=== PATIENT | female | born 1980 | race Caucasian/White ===

== ENCOUNTER 2016-11-14 12:31 | Emergency (ER) | payer MEDICAID ==
[~2016-11-14] VITALS: Ht 162.6 cm; Wt 60.8 kg
[2016-11-14 12:47] VITALS: BP 115/72
--- NOTE | 2016-11-14 13:50 | NUR ---
PT PRESENTS TO ER W/C/O ABDOMINAL PAIN AND TARRY STOOLS INTERMITTENTLY OVER THE PAST 5 MONTHS. DENIES N/V; SKIN IS PINK/WARM/DRY; AAOX4 WITH EVEN AND STEADY GAIT; LUNGS CLEAR BL; HR EVEN AND REGULAR; PT DENIES ANY FEVER, CP, SOB, OR COUGH AT THIS TIME; PATIENT STATES PAIN OF 8/10 AT THIS TIME; VSS; PATIENT POSITIONED FOR COMFORT; HOB ELEVATED; BEDRAILS UP X2; BED DOWN. ER MD MADE AWARE OF PT STATUS.
[2016-11-14] MEDS ORDERED: HYDROcodone/APAP 5/325 MG 1 TAB TAB PO ONE ×2 (14:50)
[2016-11-14] MEDS ORDERED: ONDANSETRON 4 MG ODT PO ONE (14:50)
--- NOTE | 2016-11-14 15:20 | NUR ---
NORCO 5/325 GIVEN PO PER ORDER BY HUI RIVAS
[2016-11-14] MEDS ORDERED: HYDROcodone/APAP 5/325 MG 1 TAB TAB ONE (15:22)
--- NOTE | 2016-11-14 15:35 | NUR ---
NADR ON NORCO AT THIS TIME PAIN 5/
[2016-11-14 16:00] VITALS: BP 127/85
== END 2016-11-14 16:00 | disposition home or self-care (01) ==
LOC: MED 12:31
DX: R10.9 Unspecified abdominal pain (principal); R19.4 Change in bowel habit
CPT/HCPCS: 36415; 80048; 81001; 81025; 85025; 99284; S0119

== ENCOUNTER 2019-07-27 14:05 | Emergency (ER) | payer MEDICAID ==
[~2019-07-27] VITALS: Ht 162.6 cm; Wt 72.6 kg
[2019-07-27 14:23] VITALS: BP 139/92
--- NOTE | 2019-07-27 14:29 | NUR ---
WAIT AT LOBBY.
--- NOTE | 2019-07-27 15:15 | NUR ---
PT AMBUALTED TO ER BED 11
--- NOTE | 2019-07-27 15:32 | NUR ---
38 YO F CO HEADACHE AND COLD. NO PAST MED HX AND NO MEDS TAKEN AT HOME.
[2019-07-27 15:41] VITALS: BP 139/92
--- NOTE | 2019-07-27 15:42 | NUR ---
Patient discharged with v/s stable. Written and verbal after care instructions given and explained. Patient alert, oriented and verbalized understanding of instructions. Ambulatory with steady gait. All questions addressed prior to discharge. ID band removed. Patient advised to follow up with PMD. Rx of IBUPROFEN, FLONASE AND AUGMENTIN given. Patient educated on indication of medication including possible reaction and side effects. Opportunity to ask questions provided and answered.
== END 2019-07-27 15:42 | disposition home or self-care (01) ==
LOC: MED 14:05
DX: J06.9 Acute upper respiratory infection, unspecified (principal); H65.91 Unspecified nonsuppurative otitis media, right ear
CPT/HCPCS: 99283

== ENCOUNTER 2024-04-02 17:29 | Emergency (ER) | payer MEDICAID, OTHER ==
[~2024-04-02] VITALS: Ht 162.6 cm; Wt 83.0 kg
[2024-04-02 17:42] VITALS: BP 111/76; PULSE 78; RESP 18; TEMP 98.1; O2SAT 100
[2024-04-02 17:56] VITALS: TEMP 98.1
[2024-04-02 18:20] LABS: BASOPHILS % (AUTO) 0.5 % (0.0-2.0); EOSINOPHILS # (AUTO) 0.1 K/uL (0-0.4); EOSINOPHILS % (AUTO) 0.8 % (0.0-4.0); HEMATOCRIT 38.4 % (36-48); HEMOGLOBIN 12.9 g/dL (12.0-16.0); LYMPHOCYTES # (AUTO) 1.3 K/uL (2.5-16.5); LYMPHOCYTES % (AUTO) 19.1 % (20.5-51.1); MEAN CORPUSCULAR HEMOGLOBIN 30 pg (27-31); MEAN CORPUSCULAR HGB CONC 34 g/dL (33-37); MEAN CORPUSCULAR VOLUME 89.8 fL (80-94); MONOCYTES # (AUTO) 0.4 K/uL (0.8-1.0); MONOCYTES % (AUTO) 5.6 % (1.7-9.3); NEUTROPHILS # (AUTO) 4.9 K/uL (1.8-7.7); PLATELET COUNT (AUTO) 203 K/uL (140-450); RED BLOOD CELL COUNT(AUTO) 4.27 MIL/uL (4.20-5.40); RED CELL DISTRIBUTION WIDTH 13.2 % (11.6-13.7); WHITE BLOOD COUNT (AUTO) 6.6 K/uL (4.8-10.8)
[2024-04-02] MEDS: ONDANSETRON 4 MG ODT PO ONE (18:22)
[2024-04-02 18:27] LABS: ANION GAP 11.3 (8-16); CALCIUM 8.5 mg/dL (8.5-10.1); CARBON DIOXIDE 28.1 mmol/L (21-32); CREATININE 1.2 mg/dL (0.6-1.3); POTASSIUM 3.4 mmol/L (3.5-5.1)
[2024-04-02 19:25] LABS: ALBUMIN 3.7 g/dL (3.4-5.0); BILIRUBIN,DIRECT 0.1 mg/dL (0.0-0.3); TOTAL BILIRUBIN 0.5 mg/dL (0.0-1.0); TOTAL PROTEIN, SERUM 6.9 g/dL (6.4-8.2)
[2024-04-02 19:59] VITALS: BP 141/64; PULSE 86; RESP 16; O2SAT 100
[2024-04-02] MEDS ORDERED: ONDA-188 PO (20:05)
== END 2024-04-02 20:15 | disposition home or self-care (01) ==
LOC: MED 17:29
DX: R07.89 Other chest pain (principal); R10.13 Epigastric pain; R11.2 Nausea with vomiting, unspecified; Z79.899 Other long term (current) drug therapy
CPT/HCPCS: 36415; 71045; 80048; 80076; 81025; 83690; 84484; 85025; 93005; 99285; Q0162